=== PATIENT | male | born 1965 | race Caucasian/White ===

== ENCOUNTER 2020-04-12 20:41 | Emergency (ER) | payer MEDICAID ==
[~2020-04-12] VITALS: Ht 167.6 cm; Wt 90.0 kg
[2020-04-12] MEDS ORDERED: ATRIN IH (21:01)
[2020-04-12] MEDS ORDERED: BUDE10.26 INH (21:01)
[2020-04-12] MEDS ORDERED: ALBU8.5H8 INH (21:01)
[2020-04-12 21:38] LABS: ALANINE AMINOTRANSFERASE 54 U/L (12-78); ALKALINE PHOSPHATASE 113 IU/L (46-116); ANION GAP 14 (8-16); ASPARTATE AMINO TRANSFERASE 38 U/L (10-37); BILIRUBIN,TOTAL 0.7 MG/DL (0.1-1.0); BLOOD UREA NITROGEN 13 MG/DL (7-18); BUN/CREATININE RATIO 14.3 (5.4-32.0); CALCIUM 9.1 MG/DL (8.5-10.1); CHLORIDE 102 MMOL/L (99-107); CREATININE 0.91 MG/DL (0.60-1.10); GLUCOSE 135 MG/DL (70-104); POTASSIUM 3.2 MMOL/L (3.5-5.1); SODIUM 139 MMOL/L (135-145); TOTAL CARBON DIOXIDE 23.4 MMOL/L (24-32); TOTAL PROTEIN 8.2 G/DL (6.4-8.2); eGFR 86 ML/MIN
[2020-04-12 21:39] LABS: BASOPHILS % (AUTO) 0.5 % (0-1); EOSINOPHILS % (AUTO) 0.4 % (0-6); ETHANOL < 0.010 GM/DL (0.0-0.010); HEMATOCRIT 45.6 % (42.0-52.0); HEMOGLOBIN 15.4 g/dl (14.0-17.9); LYMPHOCYTES # (AUTO) 1.1 X10'3 (1.1-4.8); LYMPHOCYTES % (AUTO) 14.1 % (21-51); MEAN CORPUSCULAR HEMOGLOBIN 31.4 PG (27.0-31.0); MEAN CORPUSCULAR HGB CONC 33.7 g/dL (33.0-36.5); MONOCYTES # (AUTO) 0.8 X10'3 (0-0.9); MONOCYTES % (AUTO) 10.2 % (2-12); NEUTROPHILS # (AUTO) 5.9 X10'3 (1.8-7.7); NEUTROPHILS % (AUTO) 74.8 % (42-75); PLATELET COUNT 254 X10'3 (140-440); WHITE BLOOD COUNT 7.9 X10'3 (4.5-11.0)
--- NOTE | 2020-04-12 21:40 | NUR ---
PT BROUGHT OVER WITH ARTIFICIAL BREEDING DISTRIBUTOR FROM MAIN ER TO BE PLACED IN BED 23 . PT IN GREEN SCRUBS, BELONGING REPORT COMPLETE, MED REC DONE .
--- NOTE | 2020-04-12 21:45 | NUR ---
DR SZYMANSKI AT BEDSIDE TO SEE PATIENT
--- NOTE | 2020-04-12 22:00 | NUR ---
PT ORIENTED TO UNIT DISCUSSED PLAN OF CARE . PT CONTRACTED FOR SAFETY . VERBALIZED HE WILL NOT HURT HIMSELF , BUT IS HEARING VOICES . REASSURED PT THAT HE IS SAFE AND THAT WE WILL KEEP HIM THAT WAY . PT VERBALIZED " THANK YOU " PT UP OUT OF BED TO BATHROOM WITH STEADY GAIT FOR URINE SPECIAMAN
--- NOTE | 2020-04-12 22:23 | NUR ---
PT MEDS TO PHARMACY
[2020-04-12] MEDS ORDERED: ipratropium 0.5 MG/2.5ML nebule NEB PRN (22:40)
[2020-04-12] MEDS ORDERED: albuterol 2.5 MG/3 ML nebule NEB PRN (22:40)
[2020-04-12 22:42] LABS: CLARITY,URINE SLIGHTLY CLOUDY (Clear); COLOR,URINE YELLOW (Yellow); GLUCOSE, URINE NEGATIVE (Neg); KETONES,URINE TRACE mg/dl (Neg); LEUKOCYTE ESTERASE ,URINE NEGATIVE (Neg); NITRITES, URINE NEGATIVE (Neg); OCCULT BLOOD,URINE SMALL (Neg); PH,URINE 5.5 (4.8-8.0); PROTEIN,URINE 30 mg/dl (Neg); UA COLLECTION TYPE CLN CATCH MIDSTREAM; UROBILINOGEN,URINE 0.2 E.U/dL (0.2-1.0)
[2020-04-12 22:44] LABS: URINE AMPHETAMINE SCREEN POSITIVE (Neg); URINE BARBITUATE SCREEN NEGATIVE (Neg); URINE BENZODIAZEPINES SCREEN NEGATIVE (Neg); URINE CANNABINOID SCREEN POSITIVE (Neg); URINE COCAINE SCREEN NEGATIVE (Neg); URINE METHADONE SCREEN NEGATIVE (Neg); URINE OPIATE SCREEN NEGATIVE (Neg); URINE PHENCYCLIDINE SCREEN NEGATIVE (Neg)
[2020-04-12 22:53] LABS: MUCUS STRANDS MANY /LPF (Neg); SQUAMOUS EPITHELIAL CELL,UR FEW /LPF (FEW)
[2020-04-12 22:54] LABS: AMORPHOUS URATES 2+; BACTERIA,URINE FEW /HPF (Neg); RBC,URINE 0-2 /HPF (0-2); WBC,URINE 0-4 /HPF (0-4)
[2020-04-12] MEDS ORDERED: potassium Cl 20 mEq SR tablet PO STA (22:55)
--- NOTE | 2020-04-12 22:55 | NUR ---
PT REPORTS HE IS FEELING ANXIOUS AND SCARED . PT HR AT 110 RESP 18 BP 157/90 O2 SAT 98 % ROOM AIR . PT STATES HE HAS FEAR STILL THAT SOMEONE IS GOING TO KILL HIM . PT POTASSIUM IS AT 3.[address] DRAPER OF K VALUE AND PT'S CURRENT SET OF VSS AND URINE TOXC SCREEN RESULTS . ORDER GIVEN FOR 60 MEQ OF KCL PO AND SERAQUEL 50 MG PO X1 NOW .
[2020-04-12] MEDS ORDERED: QUEtiapine 25mg tablet PO SCH (23:00)
--- NOTE | 2020-04-12 23:19 | NUR ---
PT REPORTS HE IS A SMOKER . SMOKES 1/2 A PACK A DAY AND IS REQUESTING A NICOTINE PATCH . PHONED CHARGE NURSE IN MAIN ER TO GET AN ORDER FROM MD DRAPER FOR NICOTINE PATCH
--- NOTE | 2020-04-12 23:43 | NUR ---
RESP. AT BEDSIDE TO SPEAK WITH PATIENT ABOUT HIS MED NEB TX'S .
--- NOTE | 2020-04-13 | NUR ---
RESP TREATMENT GIVEN ORDERED
--- NOTE | 2020-04-13 01:10 | NUR ---
PT RESTING COMFORTBALY IN BED WITH HIS EYES CLOSED . PT APPEARS TO ALMOST BE ASLEEP . WILL CONTINUE TO REASSESS NEEDED . RESP EVEN AND UINLABORED
--- NOTE | 2020-04-13 01:40 | NUR ---
PACKET FAXED, BY MAY FERREIRA TO [facility]
--- NOTE | 2020-04-13 01:40 | NUR ---
Ryan mendoza in [facility] - 04/13/20 at 0600 by NYLA SMITH MCDONALD, BY MAY FERREIRA [facility]
--- NOTE | 2020-04-13 02:18 | NUR ---
PT SLEEPING PEACFULLY SUPINE IN BED WITH HOB ELEVATED 30 DEGREES . RESP EVEN AND UNLABORED . WILL CONTINUE TO MONITOR AND REASSESS NEEDED
--- NOTE | 2020-04-13 03:05 | NUR ---
PT SLEEPING PEACFULLY SUPINE IN BED . HOB ELEVATED 30 DEGREES . RESP EVEN AND UNLABORED .will continue to monitor and reassess
--- NOTE | 2020-04-13 04:00 | NUR ---
PT SLEEPING PEACFULLY SUPINE IN BED . HOB ELEVATED 30 DEGREES . RESP EVEN AND UNLABORED. WILL CONTINUE TO MONITOR AND REASSESS
--- NOTE | 2020-04-13 05:46 | NUR ---
PT AWOKEN WITH VITAL SIGNS . ASKING FOR FOOD . PT REFUSED TURKEY SANDWITCH LAST NIGHT WHEN OFFERED , BUT STATES HE IS NOW HUNGRY . HEART RATE AT 92 , INPROVED FROM A PREVIOUS RATES OF 112-120 ON ADMISSION . BROUGHT PT A TURKEY SANDWITCH . PLAN OF CAR UPDATED , PT IS AWARE HE HAS AN AM BLOOD DRAW TO RECHECK HIS POTASSIUM LEVEL . PATIENT verbalized " I WOULD LIKE TO WAIT ON MY BLOOD DRAW UNTIL I AM FINISHED EATING. " REASSURED PATIENT THAT HE WILL BE ABLE TO FINISH HIS MEAL PRIOR TO HIS BLOOD BEING DRAWN . PT COROPORATIVE AND CALM AT THIS TIME .
[2020-04-13 07:12] LABS: ALBUMIN 3.5 G/DL (3.4-5.0); ANION GAP 8 (8-16); BLOOD UREA NITROGEN 13 MG/DL (7-18); BUN/CREATININE RATIO 14.4 (5.4-32.0); CALCIUM 8.8 MG/DL (8.5-10.1); CHLORIDE 105 MMOL/L (99-107); GLUCOSE 176 MG/DL (70-104); POTASSIUM 3.6 MMOL/L (3.5-5.1); SODIUM 140 MMOL/L (135-145); TOTAL CARBON DIOXIDE 26.6 MMOL/L (24-32); eGFR 87 ML/MIN
--- NOTE | 2020-04-13 07:30 | NUR ---
Pt. asleep laying on left side. Normal R&R of respiration noted. Pt. in no apparent distress.
[2020-04-13] MEDS: budesonide 0.5mg/2ml UD nebule IH SCH ×2 (08:00→18:52)
--- NOTE | 2020-04-13 10:13 | NUR ---
1:1 done at bedside. Pt. reports SI with plan to cut his wrists. Pt. has multiple previous suicide attempts by cutting his wrists. Pt. reports + auditory hallucinations, pt. states, "But they are real! Everytime I use (drugs) they are coming after me. I stayed in a motel for 4 hours yesterday and I could hear them outside my room... [facility]... They are out to get me".
--- NOTE | 2020-04-13 11:10 | NUR ---
[facility] ultra sound technician Eitan at bedside talking with pt.
--- NOTE | 2020-04-13 12:27 | NUR ---
Pt. placed on 5150 by Eitan from [facility] for DTS. Pt. continues to have active thoughts of killing himself and has plan to "cut himself". Pt. is depressed, and suffering from paranoia. Pt. does not feel he is safe to be by himself.
--- NOTE | 2020-04-13 14:30 | NUR ---
Pt. asleep in bed laying on left side. Normal R&R of respirations noted. Pt. is in no apparent distress.
--- NOTE | 2020-04-13 16:30 | NUR ---
Pt. laying in bed on left side. Normal R&R of respirations noted. Pt. in no apparent distress.
[2020-04-13 17:44] VITALS: BP 138/83
--- NOTE | 2020-04-13 18:19 | NUR ---
Pt. c/o of bilateral leg pain rated 6/10. Pt. reports he has taken gabapentin for this in the past but it has been about a month since last taking it. Pt. reports diabetes in his past which has been diet controlled. Pt.'s diet changed to carbohydrate controlled. Pt. started on gabapentin 300mg po q HS.
--- NOTE | 2020-04-13 18:41 | NUR ---
Pt was sitting in bed eating his dinner at change of shift. Appetite is good pt ate 100% of his meal. Pt states he continues to be suicidal. Pt shows me his wrists and states "Im a cutter so I would do that." Pt reports he continues to hear voices, but they have improved since he has arrived and he doesnt know what they are saying. Respiratory is currently at his bed side, pt c/o SOB. Pt c/o constipation after dinner but just reported a large BM. Pt is currently soaking his feet to clean his feet while awaiting respiratory tx.
--- NOTE | 2020-04-13 18:45 | NUR ---
P/C from Ravi from [facility]. They will be sending packet to [facility] of acceptable placement locations for patient. They don't have a contract w/[facility], or other local placement agencies, so they will request [facility] find placement for him at one of their contracted providers first.
[2020-04-13] MEDS: ipratropium/albuterol 3ml nebule NEB PRN (18:52)
--- NOTE | 2020-04-13 20:24 | NUR ---
Pt is resting comfortably in bed, woke for scheduled meds. Pt is smiling and pleasant, cooperative. Pt is med compliant. Pt is laying on his back, RR 16 even and unlabored.
[2020-04-13] MEDS ORDERED: gabapentin 300mg capsule PO SCH (21:00)
[2020-04-13] MEDS ORDERED: QUEtiapine 25mg tablet PO SCH (21:00)
--- NOTE | 2020-04-14 06:20 | NUR ---
middle of night, 5150, SI, from [facility]. nurse states he didn't talk to patient last night because he sleeping. Amanda Lucero
--- NOTE | 2020-04-14 06:41 | NUR ---
Patient sleeping on right side. No distress observed. Continue to monitor.
[2020-04-14] MEDS: budesonide 0.5mg/2ml UD nebule IH SCH (08:11)
[2020-04-14] MEDS: ipratropium/albuterol 3ml nebule NEB PRN (08:14)
--- NOTE | 2020-04-14 08:27 | NUR ---
Patient getting a respiratory treatment. No distress observed. Continue to monitor,.
--- NOTE | 2020-04-14 10:15 | NUR ---
Patient sleeping supine. No distress observed. Continue to monitor.
== END 2020-04-14 11:02 | disposition home or self-care (01) ==
LOC: ER 20:42
DX: R45.851 Suicidal ideations (principal); F31.9 Bipolar disorder, unspecified; I10 Essential (primary) hypertension; J44.9 Chronic obstructive pulmonary disease, unspecified; F20.9 Schizophrenia, unspecified; F12.90 Cannabis use, unspecified, uncomplicated; F15.90 Other stimulant use, unspecified, uncomplicated; F11.90 Opioid use, unspecified, uncomplicated; F17.200 Nicotine dependence, unspecified, uncomplicated; Z59.0 Homelessness; Z79.899 Other long term (current) drug therapy
CPT/HCPCS: 36415; 80048; 80053; 80305; 80320; 81001; 82948; 84439; 84443; 85025; 93005; 94640; 94760; 99285; J7626